=== PATIENT | male | born 1975 | race Hispanic/Latino ===

== ENCOUNTER 2018-08-04 01:27 | Inpatient (IN) | payer OTHER ==
--- NOTE | 2018-08-04 01:47 | C.PDOC ---
History Of Present Illness 43 year old male is sent to the ED from [facility] for psych admission. Patient was medically cleared at the facility prior to my assessment today. Patient denies medical complaints. Time Seen by Provider: 08/04/18 01:38 Chief Complaint (Nursing): Psychiatric Evaluation History Per: Patient History/Exam Limitations: no limitations Onset/Duration Of Symptoms: Days Current Symptoms Are (Timing): Still Present Suicide/Self Injury Attempted (Context): None Modifying Factor(s): None Associated Symptoms: Other (schizophrenia). denies: Depression, Suicidal Thoughts, Suicidal Plan Recent travel outside of the [place]: No Additional History Per: Patient, EMS Past Medical History Reviewed: Historical Data, Nursing Documentation, Vital Signs Vital Signs: Last Vital Signs Temp 98 F 08/04/18 01:30 Pulse 72 08/04/18 01:30 Resp 22 08/04/18 01:30 BP 120/79 08/04/18 01:30 Pulse Ox 98 08/04/18 01:47 - Medical History PMH: Depression, Schizophrenia Surgical History: No Surg Hx Family History: States: Unknown Family Hx - Social History Hx Alcohol Use: Yes Hx Substance Use: Yes - Immunization History Hx Tetanus Toxoid Vaccination: No Hx Influenza Vaccination: No Hx Pneumococcal Vaccination: No Review Of Systems Except As Marked, All Systems Reviewed And Found Negative. Psych: Positive for: Psychosis. Negative for: Depression, Suicidal ideation Physical Exam - Physical Exam Appears: Non-toxic, No Acute Distress Skin: Normal Color, Warm, Dry Head: Atraumatic, Normacephalic Eye(s): bilateral: Normal Inspection Neck: Normal ROM, Supple Chest: Symmetrical Cardiovascular: Rhythm Regular Respiratory: Normal Breath Sounds, No Rales, No Rhonchi, No Wheezing Gastrointestinal/Abdominal: Soft, No Tenderness, No Guarding, No Rebound Extremity: Normal ROM, No Tenderness, No Swelling Neurological/Psych: Oriented x3, Normal Speech Gait: Steady ED Course And Treatment O2 Sat by Pulse Oximetry: 98 (ON RA) Pulse Ox Interpretation: Normal Medical Decision Making Medical Decision Making: Patient cleared for admission Disposition - Disposition Disposition: HOSPITALIZED Disposition Time: 02:00 Condition: GOOD - Clinical Impression Clinical Impression: Schizophrenia - Scribe Statement The provider has reviewed the documentation as recorded by the Scribe Trung Bateman All medical record entries made by the Scribe were at my direction and personally dictated by me. I have reviewed the chart and agree that the record accurately reflects my personal performance of the history, physical exam, medical decision making, and the department course for this patient. I have also personally directed, reviewed, and agree with the discharge instructions and disposition. Decision To Admit - Pt Status Changed To: Hospital Disposition Of: Inpatient - Admit Certification Admit to Inpatient:: After my assessment, the patient will require hospitalization for at least two midnights. This is because of the severity of symptoms shown, intensity of services needed, and/or the medical risk in this patient being treated as an outpatient. - InPatient: Physician Admission Certification: I certify that this patient requires 2 or more midnights of care for the following reason:: needs inpt pysch - . Bed Request Type: Regular Admitting Physician: Marla Miller Patient Diagnosis: Schizophrenia
--- NOTE | 2018-08-04 03:28 | PCM.BM ---
<Leticia Pierson - Last Filed: 08/04/18 03:25> Treatment Plan Problems - Problems identified on initial assessmt depression Date Initiated: 08/04/18 Time Initiated: 03: Assessment reference: NA Status: Active Comment: Hallucination substance abuse Date Initiated: 08/04/18 Time Initiated: 03:27 Assessment reference: NA Status: Active Treatment assets and liabiliti Patient Assests: cooperative, educated, motivated, self-reliant, ADL independent , good support system, negotiates basic needs, cognitively intact, good interpersonal skills Patient Liabilities: substance abuse, medical problems - Milieu Protocol Maintain good personal hygiene: daily Encourage regular showers, daily Remind patient to perform daily oral care, daily Assist patient to perform ADL's Conduct patient checks and document Observation sheet: Q15 minutes Maintain personal safety: every shift Educate patient to report safety concerns to staff, every shift Monitor environment for contraband/sharps Medication safety: Monitor for expected outcome, potential side effects: every shift, Assess barriers to learning: every shift, Assess readiness for medication education: every shift <Pratima Coy - Last Filed: 08/05/18 11:34> - Diagnosis (1) Schizoaffective disorder Status: Acute Interventions: 08/05/18 11:35 * Assess/adjust medications daily and /or as needed * See patient on an individual basis 7x/week to assess status of hallucinations * Discuss risks, benefits, side effects and alternatives of medications * (2) Opioid use disorder, severe, dependence Status: Acute Interventions: 08/05/18 11:35 * Assess/adjust medications daily and /or as needed * See patient on an individual basis 7x/week to assess status of hallucinations * Discuss risks, benefits, side effects and alternatives of medications * <Angela Miles - Last Filed: 08/05/18 13:38> Family Contact Family involvement: Famliy/SO not involved - Goals for Treatment Patient goals for treatment: "I need inpatient rehab." Discharge/Continuing Care - Education Needs Education Needs: Patient Medication, Patient Coping Skills, Patient Placement options, Patient Community resources - Discharge Discharge Criteria: Tolerates medication w/o severe side effects, No longer exhibiting s/s of withdrawal, Reduction of target symptoms Discharge to:: Substance Abuse Rehab - Treatment Team Participation Discussed with Family/SO: No Was Patient/Family/SO present at Treatment Team Meeting: Yes
[2018-08-04 06:56] VITALS: O2SAT 96
[2018-08-04] MEDS: Multiple Vitamins Tab PO SCH (11:31)
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
[2018-08-05] MEDS: Multiple Vitamins Tab PO SCH (10:39)
--- NOTE | 2018-08-05 11:31 | PCM.PYCHPN ---
Psychiatric Progress Note - Psychiatric Progress Note Patient seen today, length of contact: 15 min Medication Change: Yes Medical Record Reviewed: Yes Mental Status Examination - Cognitive Function Orientation: Person, Place, Situation, Time Memory: Intact Attention: WNL Concentration: Poor Association: Loose Fund of Knowledge: Poor - Mood Mood: Depressed, Anxious - Affect Affect: Constricted - Speech Speech: Soft - Formal Thought Process Formal Thought Process: Delusions, Paranoia, Loosening of associations - Suicidal Ideation Suicidal Ideation: No - Homicidal Ideation Homicidal Ideation: No Goal/Treatment Plan - Goal/Treatment Plan Need for Continued Stay: Severe depression anxiety, Severe functional impairment Progress Toward Problem(s) and Goals/Treatment Plan: Schizoaffective d/o - depressed Opioid withdrawal opioid use d/o - severe Alcohol use d/o - severe Start Lexapro, Neurontin, Risperdal Librium, and taper with methadone Pt already received 20 mg MTD this morning, give 5 mg MTD later Start taper afterwards As need medications All risks, benefits and alternatives of the meds discussed, and the pt agreed and understood. Attend groups and activities Individual therapy daily Psychoeducation and support daily Encourage compliance with meds and after care Refer to outpatient program Teach healthy lifestyle methods, i.e. diet, exercise, meditation Smoking cessation and patch if needed
[2018-08-05] MEDS: Divalproex 250 mg DR Tab PO SCH ×2 (13:04→17:23)
[2018-08-06] MEDS: Divalproex 250 mg DR Tab PO SCH ×2 (09:53→17:05)
[2018-08-06] MEDS: Multiple Vitamins Tab PO SCH (09:53)
[2018-08-07 06:53] VITALS: BP 118/74; PULSE 76; RESP 16; TEMP 97.1
[2018-08-07] MEDS ORDERED: Pneumococcal 23-Valent Vaccine IM ONE (10:00)
[2018-08-07] MEDS: Multiple Vitamins Tab PO SCH (10:05)
[2018-08-07] MEDS: Divalproex 250 mg DR Tab PO SCH (10:05)
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
== END 2018-08-07 12:26 | disposition home or self-care (01) | DRG 885 ==
LOC: C.ER 01:27 → C.5E 01:43
PROVIDERS: ADMIT Psychiatry & Neurology Psychiatry; ATTEND Psychiatry & Neurology Psychiatry
PROC: GZHZZZZ Group Psychotherapy (ICD-10-PCS; principal; 2018-08-04)
PROC: GZ58ZZZ Individual Psychotherapy, Cognitive-Behavioral (ICD-10-PCS; 2018-08-04)
PROC: GZ56ZZZ Individual Psychotherapy, Supportive (ICD-10-PCS; 2018-08-04)
DX: F25.9 Schizoaffective disorder, unspecified (principal); F11.23 Opioid dependence with withdrawal; F32.9 Major depressive disorder, single episode, unspecified; F12.90 Cannabis use, unspecified, uncomplicated; F15.90 Other stimulant use, unspecified, uncomplicated; K52.9 Noninfective gastroenteritis and colitis, unspecified; F17.210 Nicotine dependence, cigarettes, uncomplicated; F10.20 Alcohol dependence, uncomplicated